=== PATIENT | male | born 1985 | race African-American/Black ===

== ENCOUNTER 2017-01-26 12:14 | Emergency (ER) | payer OTHER ==
[~2017-01-26] VITALS: Ht 182.9 cm; Wt 112.9 kg
[~2017-01-26 12:14] MED LIST: MOTRIN600 MG PO
[2017-01-26 12:27] VITALS: BP 120/83
[2017-01-26] MEDS ORDERED: NAPROSYN500 MG PO (14:37)
[2017-01-26] MEDS ORDERED: FLEXERIL10 MG PO (14:37)
== END 2017-01-26 14:48 | disposition home or self-care (01) ==
LOC: EME 12:14
DX: M25.511 Pain in right shoulder (principal); X50.0XXA Overexertion from strenuous movement or load, initial encounter; Y93.89 Activity, other specified; Y99.0 Civilian activity done for income or pay; F17.200 Nicotine dependence, unspecified, uncomplicated
CPT/HCPCS: 73030; 99281; 99284